=== PATIENT | female | born 1975 | race Hispanic/Latino ===

== ENCOUNTER 2021-05-16 22:51 | Day surgery (SDC) | payer OTHER ==
[2021-05-16 23:16] VITALS: BMI 34.3
[2021-05-17] MEDS ORDERED: hydrALAZINE 20 MG/ML VIAL SLOW IVP PRN (00:03)
== END 2021-05-17 00:39 | disposition home or self-care (01) ==
LOC: CSHLD/OP 22:51
PROVIDERS: ATTEND Obstetrics & Gynecology
DX: O99.891 Other specified diseases and conditions complicating pregnancy (principal); R10.2 Pelvic and perineal pain; N89.8 Other specified noninflammatory disorders of vagina; O47.1 False labor at or after 37 completed weeks of gestation; O10.913 Unspecified pre-existing hypertension complicating pregnancy, third trimester; O09.523 Supervision of elderly multigravida, third trimester; Z3A.37 37 weeks gestation of pregnancy
CPT/HCPCS: 87480; 87491; 87510; 87591; 87660; 99285

== ENCOUNTER 2021-05-27 20:08 | Day surgery (SDC) | payer OTHER ==
[2021-05-27 20:30] VITALS: BMI 34.3
== END 2021-05-27 21:22 | disposition home or self-care (01) ==
LOC: CSHLD/OP 20:08
PROVIDERS: ATTEND Obstetrics & Gynecology
DX: O23.593 Infection of other part of genital tract in pregnancy, third trimester (principal); O09.523 Supervision of elderly multigravida, third trimester; O10.013 Pre-existing essential hypertension complicating pregnancy, third trimester; Z3A.38 38 weeks gestation of pregnancy; Z87.59 Personal history of other complications of pregnancy, childbirth and the puerperium; Z79.899 Other long term (current) drug therapy
CPT/HCPCS: 99282

== ENCOUNTER 2021-06-01 05:30 | Inpatient (IN) | payer MEDICAID, OTHER ==
[2021-06-01 06:51] VITALS: BMI 34.3
[2021-06-01] MEDS ORDERED: Terbutaline Sulfate 1 MG/ML VIAL ONE (07:00)
[2021-06-01] MEDS ORDERED: ePHEDrine Sulfate 50 MG/10 ML VIAL ONE (07:00)
[2021-06-01] MEDS ORDERED: Bupivacaine 0.25% HCL 30 ML VIAL ONE (07:00)
[2021-06-01] MEDS ORDERED: hydrALAZINE 20 MG/ML VIAL SLOW IVP PRN ×2 (07:10→22:55)
[2021-06-01] MEDS ORDERED: Diphenoxylate HCl/Atropine Tablet PO PRN (07:10)
[2021-06-01] MEDS ORDERED: Ondansetron PF 4 MG/2 ML Vial IVP PRN ×2 (07:10→16:49)
[2021-06-01] MEDS ORDERED: Carboprost 250 MCG/ML AMP IM PRN (07:10)
[2021-06-01] MEDS ORDERED: Acetaminophen 500 MG TAB PO PRN (07:10)
[2021-06-01] MEDS ORDERED: Methylergonovine 0.2 MG/ML VIAL IM PRN (07:10)
[2021-06-01] MEDS ORDERED: Ibuprofen 800 MG TAB PO PRN (07:10)
[2021-06-01] MEDS ORDERED: Promethazine HCl 25 MG/ML VIAL IM PRN ×2 (07:10→16:49)
[2021-06-01] MEDS ORDERED: HYDROcodone/Acetaminophen 5/325 mg Tablet PO PRN ×3 (07:10→22:55)
[2021-06-01] MEDS ORDERED: Lidocaine 1% (PF) 30 ML VIAL SC PRN (07:10)
[2021-06-01] MEDS ORDERED: NS w/ Oxytocin 30 units 500 ML IVPB SCH (07:15)
[2021-06-01] MEDS ORDERED: NS w/ Oxytocin 30 units 500 ML IV SCH ×2 (07:15→22:55)
[2021-06-01] MEDS: Lactated Ringer's 1,000 ML IV SCH ×2 (07:44→14:35)
[2021-06-01 07:53] LABS: Hemoglobin 11.9 g/dL (12.0-15.5); Mean Corpuscular HGB CONC 33.7 g/dL (32.0-36.0); Mean Corpuscular Hemoglobin 29.8 pg (27.0-33.0); Mean Corpuscular Volume 88.5 fl (81.6-98.3); Platelet Count 157 10x3/uL (150-450); RBC Distribution Width 14.5 % (11.5-14.5); Red Blood Cell (RBC) Count 3.99 10x6/uL (3.90-5.03); White Blood Cell (WBC) Count 8.5 10x3/uL (3.5-10.5)
[2021-06-01 08:26] LABS: Hep B Surf Ag Non-Reactive S/CO (NonReactive); Syphilis Antibody Nonreactive (Nonreactive); Syphilis Antibody Index 0.02 S/CO (<1.00 Non-Reactive)
[2021-06-01 09:00] LABS: HBSAg Index 0.16 S/CO (0-0.99)
[2021-06-01 09:49] LABS: SARS-CoV-2 NAA Rapid Test Not Detected (NotDetected)
[2021-06-01] MEDS: Butorphanol Tartrate 1 MG/ML VIAL SLOW IVP PRN ×2 (13:10→14:33)
[2021-06-01] MEDS ORDERED: Misoprostol 200 MCG TAB ONE (13:35)
[2021-06-01] MEDS ORDERED: Fentanyl 2 mcg/Bup 0.1% Cadd 100 ML ONE (15:21)
[2021-06-01] MEDS ORDERED: Acetaminophen 325 MG TAB PO PRN (16:49)
[2021-06-01] MEDS ORDERED: diphenhydrAMINE 50 MG/ML VIAL IVP PRN (16:49)
[2021-06-01] MEDS ORDERED: ePHEDrine Sulfate 50 MG/10 ML VIAL SLOW IVP PRN (16:49)
[2021-06-01] MEDS ORDERED: Hydrocerin (Eucerin) Cream 120 gm Jar TOP PRN (16:49)
[2021-06-01] MEDS ORDERED: Lactated Ringer's 500 ML IV PRN (16:49)
[2021-06-01] MEDS ORDERED: Naloxone HCl 0.4 mg/ml Vial IVP PRN ×2 (16:49)
[2021-06-01] MEDS ORDERED: Communication Order-Pharmacy FS SCH (17:00)
[2021-06-01] MEDS ORDERED: Fentanyl 2 mcg/Bupivacaine 0.1% Cassette 100 ML EPIDURAL SCH (17:00)
[2021-06-01 20:45] LABS: pH (Cord, venous) 7.365 (7.250-7.350)
[2021-06-01] MEDS ORDERED: Milk Of Magnesia 30 ML UDCUP PO PRN (22:55)
[2021-06-01] MEDS ORDERED: Lanolin Ointment 7 GM TUBE TOP PRN (22:55)
[2021-06-01] MEDS ORDERED: Bisacodyl 10 MG SUPP PR PRN (22:55)
[2021-06-01] MEDS ORDERED: Boostrix 0.5 ML (Tdap) VIAL IM ONE (22:55)
[2021-06-01] MEDS ORDERED: Benzocaine-Menthol 82.5 ML CAN TOP PRN (22:55)
[2021-06-02] MEDS: Ferrous Sulfate 325 MG TAB PO SCH ×3 (00:21→15:55)
[2021-06-02] MEDS: Docusate Calcium (SURFAK) 240 MG CAP PO SCH ×3 (00:21→21:58)
[2021-06-02] MEDS: Ibuprofen 800 MG TAB PO SCH ×4 (00:21→21:57)
[2021-06-02] MEDS: HYDROcodone/Acetaminophen 5/325 mg Tablet PO PRN ×3 (03:57→18:15)
[2021-06-02] MEDS: Prenatal Vitamin 1 TAB PO SCH (08:16)
[2021-06-03] MEDS: Ibuprofen 800 MG TAB PO SCH ×2 (05:05→14:27)
[2021-06-03] MEDS: Prenatal Vitamin 1 TAB PO SCH (08:31)
[2021-06-03] MEDS: Docusate Calcium (SURFAK) 240 MG CAP PO SCH (08:31)
[2021-06-03] MEDS: Ferrous Sulfate 325 MG TAB PO SCH ×2 (08:32→17:14)
[2021-06-03 11:36] VITALS: BP 108/65; TEMP 98.7
== END 2021-06-03 18:55 | disposition home or self-care (01) | DRG 807 ==
LOC: CSHLD 05:34 → CSHPP 22:40
PROVIDERS: ADMIT Obstetrics & Gynecology; ATTEND Obstetrics & Gynecology
PROC: 10E0XZZ Delivery of Products of Conception, External Approach (ICD-10-PCS; principal; 2021-06-01)
PROC: 10907ZC Drainage of Amniotic Fluid, Therapeutic from Products of Conception, Via Natural or Artificial Opening (ICD-10-PCS; 2021-06-01)
PROC: 3E033VJ Introduction of Other Hormone into Peripheral Vein, Percutaneous Approach (ICD-10-PCS; 2021-06-01)
DX: O76 Abnormality in fetal heart rate and rhythm complicating labor and delivery (principal); Z37.0 Single live birth; Z20.822 Contact with and (suspected) exposure to COVID-19; Z3A.38 38 weeks gestation of pregnancy; O69.81X0 Labor and delivery complicated by cord around neck, without compression, not applicable or unspecified
CPT/HCPCS: 36415; 51702; 82805; 85027; 86780; 86850; 86900; 86901; 87340; J0360; J0595; J2405; J2590; J3105; J7120; S0020; U0002